=== PATIENT | female | born 1990 | race Two or more races ===

== ENCOUNTER 2016-09-15 15:25 | Emergency (ER) | payer OTHER ==
[~2016-09-15] VITALS: Ht 152.4 cm; Wt 56.7 kg
[~2016-09-15 15:25] MED LIST: CALC500T3 PO; HYDR200T PO; PRED20TA PO; PREN1TAB81 PO
[2016-09-15 15:44] VITALS: BP 125/74
[2016-09-15] MEDS ORDERED: MYCO500T PO (15:50)
[2016-09-15 16:12] LABS: BASOPHILS % (AUTO) 0.2 % (0.0-2.0); DIFF TOTAL % 100 %; EOSINOPHILS % (AUTO) 0.3 % (0.0-6.0); HEMATOCRIT 34 % (33-45); HEMOGLOBIN 11.2 g/dL (11.5-14.8); LYMPHOCYTES # (AUTO) 1.6 /CMM (0.8-4.8); LYMPHOCYTES % (AUTO) 40.1 % (20.0-44.0); MEAN CORPUSCULAR HEMOGLOBIN 29 PG (26.0-33.0); MEAN CORPUSCULAR HGB CONC 33 g/dl (31.0-36.0); MEAN CORPUSCULAR VOLUME 87 fL (82-100); MONOCYTES # (AUTO) 0.4 /CMM (0.1-1.30); MONOCYTES % (AUTO) 11.5 % (2.0-12.0); NEUTROPHILS # (AUTO) 1.9 /CMM (1.8-8.9); NEUTROPHILS % (AUTO) 47.9 % (43.0-81.0); PLATELET COUNT (AUTO) 217 /CMM (150-450); RED BLOOD CELL COUNT(AUTO) 3.92 MIL/uL (4.0-5.2); WHITE BLOOD COUNT (AUTO) 3.9 K/uL (4.3-11.0)
[2016-09-15 16:17] LABS: ADD UA MICROSCOPIC NO; KETONES,URINE Negative (NEGATIVE); LEUKOCYTE ESTERASE ,URINE Negative (NEGATIVE)
[2016-09-15 16:18] LABS: PREGNANCY TEST URINE QUAL NEGATIVE (NEGATIVE)
[2016-09-15 16:21] LABS: CALCIUM, SERUM 8.5 mg/dL (8.5-10.1); CREATININE 0.7 mg/dL (0.6-1.3); POTASSIUM 3.8 mmol/L (3.5-5.1)
[2016-09-15 16:27] LABS: ALBUMIN 3.7 g/dL (3.4-5.0); BILIRUBIN,DIRECT 0.1 mg/dL (0.0-0.2); BILIRUBIN,TOTAL 0.3 mg/dL (0.2-1.0); INDIRECT BILIRUBIN 0.2 mg/dL (0.0-1.1); TOTAL PROTEIN, SERUM 6.8 g/dL (6.4-8.2)
[2016-09-15] MEDS ORDERED: predniSONE 20 MG TABLET PO ONE (17:00)
[2016-09-15] MEDS ORDERED: IBUPROFEN 600 MG TABLET PO ONE ×2 (17:00→17:11)
[2016-09-15] MEDS ORDERED: HYDROCODONE/APAP 5/325MG 1 EACH TABLET PO ONE (17:00)
[2016-09-15] MEDS ORDERED: ONDANSETRON 4 MG TAB.RAPDIS SL ONE (17:00)
[2016-09-15] MEDS ORDERED: HYDROCODONE/APAP 5/325MG 1 EACH TABLET ONE (17:11)
[2016-09-15] MEDS ORDERED: predniSONE 20 MG TABLET ONE (17:11)
[2016-09-15] MEDS ORDERED: predniSONE 10 MG TABLET ONE (17:11)
[2016-09-15] MEDS ORDERED: ONDANSETRON 4 MG TAB.RAPDIS ONE (17:11)
== END 2016-09-15 18:09 | disposition left against medical advice (07) ==
LOC: ER 15:26
DX: M25.531 Pain in right wrist (principal); R21 Rash and other nonspecific skin eruption; M32.9 Systemic lupus erythematosus, unspecified
CPT/HCPCS: 36415; 80048-TC; 80076-TC; 81000-TC; 84703-TC; 85025-TC; A4606; Q0162; Z7610

== ENCOUNTER 2017-01-04 22:19 | Emergency (ER) | payer OTHER ==
[~2017-01-04] VITALS: Ht 152.4 cm; Wt 59.0 kg
[~2017-01-04 22:19] MED LIST changes: +MYCO500T PO; -PRED20TA PO; -PREN1TAB81 PO
--- NOTE | 2017-01-04 22:41 | NUR ---
PT AMBUALOTRY TO ER BED 7 C/O MIGRAINE HEADACHE, PRODUCTIVE COUGH, LIP BLISTERS, FEVERS, CHILLS X4 DAYS, "BECAUSE OF MY LUPUS FLARE-UP" PT AOX4 RR EVEN AND UNLABORED. NO SOB NOTED. NAD NOTED. NO NVD AT THIS TIME. PT GOWNED AND PLACED ON MONITOR WAITING FOR MD MCGHEE.
--- NOTE | 2017-01-04 23:11 | NUR ---
DR. AMADOR AT BEDSIDE FOR EVAL.
[2017-01-04] MEDS ORDERED: DEXAMETHASONE SOD PHOSPHATE 10 MG/ML VIAL ONE (23:21)
[2017-01-04] MEDS ORDERED: diphenhydrAMINE HCL 50 MG/ML VIAL ONE (23:21)
[2017-01-04] MEDS ORDERED: IV NS 0.9% 1,000 ML ONE (23:21)
[2017-01-04] MEDS ORDERED: IV SET PRIMARY 1 EA INFUS.SET MC ONE (23:21)
[2017-01-04] MEDS ORDERED: IV NS 0.9% 1,000 ML BAG IV ONE (23:30)
[2017-01-04] MEDS ORDERED: METOCLOPRAMIDE HCL 10 MG/2 ML VIAL IV ONE (23:30)
[2017-01-04] MEDS ORDERED: DEXAMETHASONE SOD PHOSPHATE 10 MG/ML VIAL IV ONE (23:30)
[2017-01-04] MEDS ORDERED: diphenhydrAMINE HCL 50 MG/ML VIAL IV ONE (23:30)
[2017-01-04] MEDS ORDERED: METOCLOPRAMIDE HCL 10 MG/2 ML VIAL ONE (23:32)
--- NOTE | 2017-01-05 00:29 | NUR ---
IV removed. Catheter intact and site benign. Pressure and 4x4 applied to site. No bleeding noted. Patient discharged to home in stable condition. Written and verbal after care instructions given. Patient verbalizes understanding of instruction. ambulatory with a steady gait. instructed pt not to drive. pt verbalize understanding. pt accompanied by boyfriend
[2017-01-05 00:30] VITALS: BP 116/72
== END 2017-01-05 00:44 | disposition home or self-care (01) ==
LOC: ER 22:20
DX: M32.9 Systemic lupus erythematosus, unspecified (principal); G43.909 Migraine, unspecified, not intractable, without status migrainosus
CPT/HCPCS: A4606; J1100; J1200; J2765; J7030; Z7610

== ENCOUNTER 2017-07-02 22:26 | Emergency (ER) | payer OTHER ==
--- NOTE | 2017-07-02 22:31 | NUR ---
PT CALLED TO TRIAGE. NO RESPONSE.
--- NOTE | 2017-07-02 23:20 | NUR ---
CALLED FOR PT IN [place]. NO RESPONSE.
--- NOTE | 2017-07-03 00:35 | NUR ---
CALLED FOR PT, NO REPONSE. INFORMED BY ADMITTING STAFF PT LEFT.
== END 2017-07-03 00:37 | disposition left against medical advice (07) ==
LOC: ER 22:26
DX: Z53.21 Procedure and treatment not carried out due to patient leaving prior to being seen by health care provider (principal)

== ENCOUNTER 2017-08-18 20:59 | Emergency (ER) | payer OTHER ==
[~2017-08-18] VITALS: Ht 154.9 cm; Wt 56.7 kg
--- NOTE | 2017-08-19 00:26 | NUR ---
PT BIBSELF C/O "LUPUS FLARE UP/MIGRAINE" PT AOX3 RR EVEN AND UNLABORED. NO SOB NOTED. NAD NOTED. NO NVD AT THIS TIME. PT GOWNED AND PLACED ON MONITOR WAITING FOR MD MCGHEE.
[2017-08-19] MEDS ORDERED: METOCLOPRAMIDE HCL 10 MG/2 ML VIAL IV ONE (00:30)
[2017-08-19] MEDS ORDERED: IV NS 0.9% 1,000 ML BAG IV ONE (00:30)
[2017-08-19] MEDS ORDERED: methylPREDNISolone SOD SUCC 125 MG/2ML VIAL IV ONE (00:30)
[2017-08-19] MEDS ORDERED: SUMATRIPTAN SUCCINATE 6 MG/0.5 ML VIAL SQ ONE ×2 (00:30→01:26)
[2017-08-19] MEDS ORDERED: methylPREDNISolone SOD SUCC 125 MG/2ML VIAL ONE (01:26)
[2017-08-19] MEDS ORDERED: METOCLOPRAMIDE HCL 10 MG/2 ML VIAL ONE (01:26)
--- NOTE | 2017-08-19 02:20 | NUR ---
PT STATES FEELING BETTER. DR. KULKARNI MADE AWARE
--- NOTE | 2017-08-19 02:32 | NUR ---
IV removed. Catheter intact and site benign. Pressure and 4x4 applied to site. No bleeding noted. Patient discharged to home in stable condition. Written and verbal after care instructions given. Patient verbalizes understanding of instruction. ambulatory with a steady gait
[2017-08-19 02:33] VITALS: BP 125/77
== END 2017-08-19 02:34 | disposition home or self-care (01) ==
LOC: ER 21:08
DX: G43.909 Migraine, unspecified, not intractable, without status migrainosus (principal); M32.9 Systemic lupus erythematosus, unspecified
CPT/HCPCS: 96361; 96372; 96374; 96375; 99284; J2765; J2930; J3030; J7030

== ENCOUNTER 2019-08-11 19:33 | Emergency (ER) | payer OTHER ==
[~2019-08-11] VITALS: Ht 152.4 cm; Wt 55.3 kg
[~2019-08-11 19:33] MED LIST changes: -CALC500T3 PO; +CALC500T89 PO; -HYDR200T PO; +HYDR200T81 PO
[2019-08-11] MEDS ORDERED: ONDANSETRON HCL/PF 4 MG/2 ML VIAL IVP ONE (20:00)
[2019-08-11] MEDS ORDERED: IV NS 0.9% 1,000 ML BAG IV ONE (20:00)
[2019-08-11] MEDS ORDERED: MORPHINE SULFATE INJ 2 MG/ML DISP.SYRIN IV ONE (20:00)
[2019-08-11] MEDS ORDERED: MORPHINE SULFATE INJ 4 MG/ML DISP.SYRIN ONE (20:13)
[2019-08-11] MEDS ORDERED: ONDANSETRON HCL/PF 4 MG/2 ML VIAL ONE (20:13)
--- NOTE | 2019-08-11 20:28 | NUR ---
BIBSELF FROM HOME TO ER BED 11. AAOX4. NO RESP DISTRESS NOTED. AMBULATORY. C/O EPIGASTRIC AND L LOWER QUADRANT PAIN X 3 DAYS WORST TODAY.PT RATE HER PAIN 7/10, SHARP. PT REPORTS THAT PAIN IS AGGREVATED AFTER SHE EATS. PT REPORTS VOMMITING. MD WAS AT BEDSIDE FOR EVAL. ORDERS RECEIVED, NOTED AND CARRIED OUT. IV LINE OBTAINED ON THE L AC 18G. BLOOD DRAWN AND GIVEN TO HAND TURNER AT BEDSIDE. US IS AT BEDSIDE WELL
[2019-08-11] MEDS ORDERED: FAMOTIDINE/PF INJ 20 MG/2 ML VIAL IV ONE ×2 (20:30→20:47)
[2019-08-11 20:34] LABS: BASOPHILS % (AUTO) 0.4 % (0.0-2.0); HEMATOCRIT 36 % (33-45); LYMPHOCYTES # (AUTO) 1.7 /CMM (0.8-4.8); LYMPHOCYTES % (AUTO) 36.2 % (20.0-44.0); MEAN CORPUSCULAR HGB CONC 34 g/dl (31.0-36.0); MEAN CORPUSCULAR VOLUME 92 fL (82-100); MONOCYTES # (AUTO) 0.4 /CMM (0.1-1.30); MONOCYTES % (AUTO) 7.7 % (2.0-12.0); NEUTROPHILS # (AUTO) 2.5 /CMM (1.8-8.9); NEUTROPHILS % (AUTO) 54.7 % (43.0-81.0); PLATELET COUNT (AUTO) 253 /CMM (150-450); RED BLOOD CELL COUNT(AUTO) 3.89 MIL/uL (4.0-5.2); WHITE BLOOD COUNT (AUTO) 4.6 K/uL (4.3-11.0)
[2019-08-11 20:39] LABS: APPEARANCE,URINE Clear (CLEAR); BILIRUBIN,URINE Negative (NEGATIVE); BLOOD, URINE Negative Ery/uL (NEGATIVE); COLOR,URINE Yellow (YELLOW); KETONES,URINE Negative (NEGATIVE); LEUKOCYTE ESTERASE ,URINE Negative (NEGATIVE); NITRITE, URINE Negative (NEGATIVE); PROTEIN,URINE Negative (NEGATIVE); UGLUCOSE Negative (NEGATIVE); UROBILINOGEN,URINE 0.2 EU/dL (0.2)
[2019-08-11 20:42] LABS: CALCIUM, SERUM 8.8 mg/dL (8.5-10.1); CREATININE 0.7 mg/dL (0.6-1.3); POTASSIUM 3.5 mmol/L (3.5-5.1)
[2019-08-11 21:00] LABS: ALBUMIN 3.9 g/dL (3.4-5.0); BILIRUBIN,DIRECT 0.1 mg/dL (0.0-0.2); BILIRUBIN,TOTAL 0.3 mg/dL (0.2-1.0); TOTAL PROTEIN, SERUM 6.8 g/dL (6.4-8.2)
[2019-08-11] MEDS ORDERED: HYDROCODONE/APAP 5/325MG 1 EACH TABLET ONE (21:50)
[2019-08-11] MEDS ORDERED: HYDROCODONE/APAP 5/325MG 1 EACH TABLET PO ONE (22:00)
[2019-08-11 22:02] VITALS: BP 122/85
--- NOTE | 2019-08-11 22:02 | NUR ---
Patient discharged to home in stable condition. Written and verbal after care instructions given. Patient verbalizes understanding of instruction.IV removed. Catheter intact and site benign. Pressure and 4x4 applied to site. No bleeding noted. Pt ambulatory with a steady gait
== END 2019-08-11 22:03 | disposition home or self-care (01) ==
LOC: ER 19:42
DX: R10.13 Epigastric pain (principal); R10.11 Right upper quadrant pain; F17.200 Nicotine dependence, unspecified, uncomplicated; R11.2 Nausea with vomiting, unspecified; Z98.890 Other specified postprocedural states; Z60.2 Problems related to living alone; Z79.899 Other long term (current) drug therapy
CPT/HCPCS: 36415; 76705; 80048; 80076; 81001; 83690; 84703; 85025; 96361; 96374; 96375; 99284; J2270; J2405; J3490; J7030; 81000-TC

== ENCOUNTER 2019-09-01 18:46 | Inpatient (IN) | payer OTHER ==
[~2019-09-01] VITALS: Ht 152.4 cm; Wt 57.6 kg
--- NOTE | 2019-09-01 18:56 | NUR ---
migraine headaches, generalized body aches x 4 days s/p liposuction, pt awake, alert, -sob, nad noted, vss, pending md alexandra
[2019-09-01] MEDS ORDERED: IV NS 0.9% 1,000 ML BAG IV ONE (19:30)
[2019-09-01] MEDS ORDERED: PROCHLORPERAZINE EDISYLATE 10 MG/2 ML VIAL IVP ONE (19:30)
[2019-09-01] MEDS ORDERED: DEXAMETHASONE SOD PHOSPHATE 4 MG/ML VIAL IV ONE (19:30)
[2019-09-01] MEDS ORDERED: KETOROLAC TROMETHAMINE INJ 30 MG/ML VIAL IV ONE (19:30)
[2019-09-01] MEDS ORDERED: diphenhydrAMINE HCL 50 MG/ML VIAL IV ONE (19:30)
[2019-09-01] MEDS ORDERED: KETOROLAC TROMETHAMINE INJ 30 MG/ML VIAL ONE (19:40)
[2019-09-01] MEDS ORDERED: PROCHLORPERAZINE EDISYLATE 10 MG/2 ML VIAL ONE (19:40)
[2019-09-01] MEDS ORDERED: diphenhydrAMINE HCL 50 MG/ML VIAL ONE (19:40)
[2019-09-01] MEDS ORDERED: DEXAMETHASONE SOD PHOSPHATE 10 MG/ML VIAL ONE (19:40)
[2019-09-01 19:44] LABS: CALCIUM, SERUM 8.4 mg/dL (8.5-10.1); CREATININE 0.7 mg/dL (0.6-1.3); POTASSIUM 2.9 mmol/L (3.5-5.1)
[2019-09-01 19:47] LABS: APPEARANCE,URINE Clear (CLEAR); BILIRUBIN,URINE Negative (NEGATIVE); BLOOD, URINE Negative Ery/uL (NEGATIVE); COLOR,URINE Yellow (YELLOW); KETONES,URINE Negative (NEGATIVE); LEUKOCYTE ESTERASE ,URINE Trace (NEGATIVE); NITRITE, URINE Negative (NEGATIVE); PH,URINE 7.5 (5.0-8.0); PROTEIN,URINE Negative (NEGATIVE); UGLUCOSE Negative (NEGATIVE)
[2019-09-01 19:58] LABS: BACTERIA,URINE Few /HPF (None Seen); RBC,URINE 0-2 /HPF (0-2); SQUAMOUS EPITHELIAL CELL,UR Many /HPF (None Seen)
[2019-09-01 20:04] LABS: BILIRUBIN,DIRECT 0.1 mg/dL (0.0-0.2); BILIRUBIN,TOTAL 0.5 mg/dL (0.2-1.0); TOTAL PROTEIN, SERUM 5.6 g/dL (6.4-8.2)
[2019-09-01 20:14] LABS: BASOPHILS % (AUTO) 0.1 % (0.0-2.0); EOSINOPHILS % (AUTO) 0.2 % (0.0-6.0); LYMPHOCYTES # (AUTO) 2.1 /CMM (0.8-4.8); LYMPHOCYTES % (AUTO) 39.3 % (20.0-44.0); MEAN CORPUSCULAR HGB CONC 34 g/dl (31.0-36.0); MEAN CORPUSCULAR VOLUME 92 fL (82-100); MONOCYTES # (AUTO) 0.4 /CMM (0.1-1.30); MONOCYTES % (AUTO) 6.7 % (2.0-12.0); NEUTROPHILS # (AUTO) 2.9 /CMM (1.8-8.9); NEUTROPHILS % (AUTO) 53.7 % (43.0-81.0); PLATELET COUNT (AUTO) 217 /CMM (150-450); WHITE BLOOD COUNT (AUTO) 5.5 K/uL (4.3-11.0)
[2019-09-01 20:16] LABS: RED BLOOD CELL COUNT(AUTO) 1.95 MIL/uL (4.0-5.2)
[2019-09-01 20:17] LABS: HEMATOCRIT 18 % (33-45); HEMOGLOBIN 6.1 g/dL (11.5-14.8)
[2019-09-01] MEDS ORDERED: POTASSIUM CHLORIDE 20 MEQ TAB.PRT.SR PO ONE ×3 (20:30→21:36)
[2019-09-01 20:33] LABS: LYMPHOCYTES % (MANUAL) 40 % (16-48); MONOCYTES % (MANUAL) 5 % (0-11.0); NEUTROPHILS % (MANUAL) 55 (42-76)
[2019-09-01] MEDS ORDERED: CT SWABBABLE VALVE TRANS SET 1 EA INFUS.SET MC ONE (20:36)
[2019-09-01] MEDS ORDERED: IOHEXOL-300 100 ML VIAL IV ONE (20:36)
[2019-09-01] MEDS ORDERED: IV NS 0.9% 250 ML IV ONE (20:36)
--- NOTE | 2019-09-01 21:55 | NUR ---
lab called, blood will be ready 30mins
[2019-09-01] MEDS ORDERED: MORPHINE SULFATE INJ 4 MG/ML DISP.SYRIN ONE (22:21)
--- NOTE | 2019-09-01 22:25 | NUR ---
reports pain in lower abd, luis manuel moralez aware, new orders [id number] ivp given
[2019-09-01] MEDS ORDERED: MORPHINE SULFATE INJ 2 MG/ML DISP.SYRIN IV ONE (22:30)
[2019-09-01 23:05] VITALS: BP 118/70
--- NOTE | 2019-09-01 23:05 | NUR ---
blood transfusion started; cosigned with mello roberto. vs recorded on chart
[2019-09-01 23:19] VITALS: BP 102/85
--- NOTE | 2019-09-01 23:26 | NUR ---
medrec updated, per patient she does not take any medications anymore, terence calabrese np made aware.
[2019-09-01] MEDS ORDERED: MAG HYDROX/AL HYDROX/SIMETH 30 ML UDC PO PRN (23:30)
[2019-09-01] MEDS ORDERED: HYDROCODONE/APAP 5/325MG 1 EACH TABLET PO PRN (23:30)
[2019-09-01] MEDS ORDERED: Z GUARD REMEDY 2 OZ OINT TP PRN (23:30)
[2019-09-01] MEDS ORDERED: MAGNESIUM HYDROXIDE 30 ML UDC PO PRN (23:30)
[2019-09-01] MEDS ORDERED: ONDANSETRON HCL/PF 4 MG/2 ML VIAL IVP PRN (23:30)
--- NOTE | 2019-09-02 00:01 | NUR ---
report given to mily roberto for gallo; pt will be transported once ms bed is ready.
--- NOTE | 2019-09-02 00:30 | NUR ---
pt to MS via nita
--- NOTE | 2019-09-02 00:30 | NUR ---
MS FISHING CAPTAIN NOTES Received patient from ER via rney accompanied by 1 ER staff. Admitted to [facility] 207-2 due to Anemia under the service of VANESSA Damon. Transferred patient to bed comfortably, noted ambulatory with steady gait noted. On RA, no SOB/respiratory distress noted. With on going BT with less than 20 cc left on the bag. Patient claimed no skin issues identified. Admission routine done. Patient's belongings inventory completed by the assigned COUNTER STITCHER. Admission orders noted and carried out. Kept on bed clean, dry and comfortable. Call light within easy reach. Will continue to monitor accordingly.
[2019-09-02] MEDS: HYDROCODONE/APAP 10/325MG 1 EA TABLET PO PRN ×3 (00:38→16:23)
[2019-09-02 00:50] VITALS: BP 124/82
--- NOTE | 2019-09-02 01:00 | NUR ---
MS RN NOTES Instructed patient on the stool sample collection, container and hat provided. Patient verbalized understanding. Will continue to monitor accordingly.
[2019-09-02 06:21] LABS: HEMATOCRIT 21 % (33-45); HEMOGLOBIN 7.3 g/dL (11.5-14.8); LYMPHOCYTES # (AUTO) 0.6 /CMM (0.8-4.8); MEAN CORPUSCULAR HGB CONC 34 g/dl (31.0-36.0); MEAN CORPUSCULAR VOLUME 90 fL (82-100); MONOCYTES # (AUTO) 0.1 /CMM (0.1-1.30); MONOCYTES % (AUTO) 1.7 % (2.0-12.0); NEUTROPHILS # (AUTO) 3.1 /CMM (1.8-8.9); NEUTROPHILS % (AUTO) 82.3 % (43.0-81.0); PLATELET COUNT (AUTO) 212 /CMM (150-450); RED BLOOD CELL COUNT(AUTO) 2.39 MIL/uL (4.0-5.2); WHITE BLOOD COUNT (AUTO) 3.7 K/uL (4.3-11.0)
--- NOTE | 2019-09-02 06:38 | NUR ---
MS RN CLOSING NOTES Patient asleep, easily awaken. No new unusualities noted. S/P 1 unit PRBC BT. Medicated for pain, noted effective. All nursing needs attended, due meds given as ordered. Kept on bed clean, dry and comfortable. On fall and aspiration precautions. Call light within easy reach. Endorsed.
[2019-09-02 06:45] LABS: CALCIUM, SERUM 8.3 mg/dL (8.5-10.1); CREATININE 0.6 mg/dL (0.6-1.3); MAGNESIUM 1.9 mg/dL (1.8-2.4); PHOSPHORUS 3.7 mg/dL (2.5-4.9); POTASSIUM 4.2 mmol/L (3.5-5.1)
[2019-09-02 06:49] LABS: THYROID STIMULATING HORMONE 0.475 uIU/mL (0.358-3.74)
--- NOTE | 2019-09-02 06:49 | NUR ---
MS RN CLOSING NOTES Patient asleep, easily awaken. No new unusualities noted. Medicated for pain, noted effective. All nursing needs attended, due meds given as ordered. Kept on bed clean, dry and comfortable. On fall and aspiration precautions. Call light within easy reach. Endorsed. Addendum: 09/02/19 at 0650 by DANIEL CORRALES RN WRONG ENTRY
[2019-09-02 07:30] VITALS: BP 123/75
--- NOTE | 2019-09-02 08:00 | NUR ---
RN OPENING NOTES RECEIVED PATIENT HAVING BREAKFAST. A/OX3, ABLE TO MAKE NEEDS KNOWN. NOT IN ANY FORM OF DISTRESS. NO SOB. DENIED PAIN AND DISCOMFORT AT THIS TIME. IV ACCESS INTACT AND PATENT. KEPT PATIENT SAFE AND COMFORT. BED IN LOW/LOCKED POSITION. SIDERAILS UPX2, CALL LIGHT IN REACH. WILL CONTINUE TO MONITOR ACCORDINGLY.
[2019-09-02] MEDS ORDERED: Medication Not On Formulary EA (Mycophenolate Mofetil (Cellcept) 500 MG) PO SCH (09:00)
[2019-09-02] MEDS ORDERED: MYCOPHENOLATE MOFETIL 250 MG CAPSULE PO SCH (09:00)
[2019-09-02] MEDS ORDERED: HYDROXYCHLOROQUINE 200 MG TABLET PO SCH (09:00)
[2019-09-02] MEDS ORDERED: CALCIUM CARBONATE (1250) 500 MG TABLET PO SCH (09:00)
[2019-09-02] MEDS: MORPHINE SULFATE INJ 2 MG/ML DISP.SYRIN IV PRN ×2 (09:02→12:13)
[2019-09-02 16:00] VITALS: BP 118/75
[2019-09-02] MEDS: DOCUSATE SODIUM 250 MG CAPSULE PO SCH (17:08)
[2019-09-02] MEDS: HYDROMORPHONE 1 MG/1 ML DISP.SYRIN IV PRN ×2 (18:47→22:56)
--- NOTE | 2019-09-02 19:32 | NUR ---
RN CLOSING NOTES PATIENT IN STABLE CONDITION. ALL NEEDS ATTENDED AND PROVIDED. ALL DUE MEDICATIONS GIVEN ORDERED. KEPT PATIENT SAFE AND COMFORTABLE. BED IN LOW/LOCKED POSITION, SIDERAILS UPX2, CALL LIGHT IN REACH. ENDORSED TO NIGHT RN FOR JULIUS.
--- NOTE | 2019-09-02 19:33 | NUR ---
MS RN OPENING NOTES Received patient A/O x4, awake on bed. Ambulatory with steady gait. On RA, no complaints made at this time. Patient able to attend needs independently. Discuss to patient the POC for the shift, patient verbalized understanding. Call light within easy reach. Kept bed low and locked. Will continue to monitor accordingly.
--- NOTE | 2019-09-02 19:33 | NUR ---
MS WEISS CLOSING NOTES Received patient A/O x4, awake on bed. Ambulatory with steady gait. On RA, no complaints made at this time. Patient able to attend needs independently. Discuss to patient the POC for the shift, patient verbalized understanding. Call light within easy reach. Kept bed low and locked. Will continue to monitor accordingly. Addendum: 09/02/19 at 2028 by DANIEL CORRALES RN THIS IS AN OPENING NOTES
[2019-09-02 20:00] VITALS: BP 127/90
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
--- NOTE | 2019-09-02 23:32 | NUR ---
MS RN NOTES Patient noted with complaint of worsening pain from lower back now spread to mid back not relived by diluadid 1mg IV. Abdominal tenderness decreased. Notified hr receptionist MD with quick response of STAT orders, noted and carried out. Provided hot packs to patient. Will continue to monitor accordingly.
[2019-09-03] MEDS ORDERED: METHOCARBAMOL (750MG) 750 MG TABLET ONE ×2 (00:15→04:36)
[2019-09-03] MEDS: METHOCARBAMOL (750MG) 750 MG TABLET PO SCH ×6 (00:21→21:09)
--- NOTE | 2019-09-03 00:32 | NUR ---
MS RN NOTES X-ray resulted, relayed to position description manager MD. No orders made at this time. Informed patient. Will continue to monitor accordingly.
[2019-09-03] MEDS: HYDROMORPHONE 1 MG/1 ML DISP.SYRIN IV PRN ×5 (06:27→22:42)
[2019-09-03 06:35] LABS: BASOPHILS % (AUTO) 0.2 % (0.0-2.0); EOSINOPHILS % (AUTO) 0.6 % (0.0-6.0); HEMATOCRIT 22 % (33-45); HEMOGLOBIN 7.6 g/dL (11.5-14.8); LYMPHOCYTES % (AUTO) 41.6 % (20.0-44.0); MEAN CORPUSCULAR HGB CONC 34 g/dl (31.0-36.0); MEAN CORPUSCULAR VOLUME 90 fL (82-100); MONOCYTES # (AUTO) 0.4 /CMM (0.1-1.30); MONOCYTES % (AUTO) 7.7 % (2.0-12.0); NEUTROPHILS # (AUTO) 2.4 /CMM (1.8-8.9); NEUTROPHILS % (AUTO) 49.9 % (43.0-81.0); PLATELET COUNT (AUTO) 244 /CMM (150-450); RED BLOOD CELL COUNT(AUTO) 2.49 MIL/uL (4.0-5.2); WHITE BLOOD COUNT (AUTO) 4.8 K/uL (4.3-11.0)
--- NOTE | 2019-09-03 06:56 | NUR ---
MS RN CLOSING NOTES Patient asleep on bed, on semi-Young's position. On RA, no respiratory distress noted. Medicated for pain, noted partially effective. All nursing needs attended, due meds given as ordered. Patient able to repositions self independently. Patient attended self needs independently. Kept on bed clean, dry and comfortable. Call light within easy reach. On fall and aspiration precautions. For possible D/C today, patient expressed to talk with the MD today. Endorsed to the next shift.
--- NOTE | 2019-09-03 07:30 | NUR ---
RN MS NOTES PT IN BED, AWAKE, ALERT AND ORIENTED, WITH COMPLAINT OF BACK PAIN, NIGHT RN ADMINISTERED PAIN MEDICINE, WILL REASSESS FOR PAIN, NOT IN DISTRESS, CALL LIGHT WITHIN REACH, PLAN OF CARE DISCUSSED WITH PT, VERBALIZED UNDERSTANDING.
[2019-09-03 08:00] VITALS: BP 119/75
[2019-09-03] MEDS: DOCUSATE SODIUM 250 MG CAPSULE PO SCH (09:01)
[2019-09-03] MEDS ORDERED: methylPREDNISolone SOD SUCC 40 MG/ML VIAL IV ONE (10:30)
--- NOTE | 2019-09-03 10:37 | NUR ---
RN MS NOTES PT SEEN AND EXAMINED BY DR. PARKER, PLAN OF CARE DISCUSSED WITH PT, CT ABD PELVIS ORDERED, PAIN MEDICATION ORDER ADJUSTED, VERBALIZED UNDERSTANDING, NEW ORDERS GIVEN, NOTED AND CARRIED OUT.
[2019-09-03] MEDS: PANTOPRAZOLE 40 MG TABLET.DR PO SCH (10:56)
--- NOTE | 2019-09-03 13:50 | NUR ---
RN MS NOTES DR. PARKER INFORMED OF LATEST CT ABD PELVIS RESULT, NEW ORDERS GIVEN, PT INFORMED, PAIN MEDS GIVEN ORDERED, WILL CONTINUE TO MONITOR.
[2019-09-03] MEDS: CEFTRIAXONE 1 G in IV D5W 50 ML IV SCH (14:37)
[2019-09-03 16:00] VITALS: BP 116/77
--- NOTE | 2019-09-03 18:19 | NUR ---
RN MS NOTES PT IN BED, AWAKE, ALERT AND ORIENTED, PAIN MEDS GIVEN FOR PAIN MANAGEMENT, NOT IN DISTRESS, ABLE TO AMBULATE TO THE BATHROOM, HOT PACKS PROVIDED, STARTED ON IV ATB ORDERED, NO ADVERSE REACTION NOTED, PM MEDS GIVEN, ALL NEEDS ATTENDED.
--- NOTE | 2019-09-03 19:50 | NUR ---
DR. RICARDO IN TO SEE THE PATIENT. Dr. ricardo assisted with rounding at the bedside on the patient. no new orders recieved. patient inquiring about pain medications schedule. endorsed to primary nurse Abby
--- NOTE | 2019-09-03 19:55 | NUR ---
RN OPENING NOTES RECEIVED REPORT FROM DAYSORFT RN JACKIE. FOUND Pt AWAKE, RESTING IN BED, TALKING ON THE PHONE. NO S/S OF ACUTE DISTRESS OR SOB NOTED. Pt IS A/OX4, VERBAL, ABLE TO MAKE NEEDS KNOWN. IV ACCESS ON RAC #20G, SL. SAFETY MEASURES IN PLACE. BED LOW, LOCKED, HOB ELEVATED, SIDE RAILS UP, CALL LIGHT AND BEDSIDE TABLE WITHIN REACH. WILL CONTINUE TO MONITOR Pt's CONDITION AND SAFETY THROUGHOUT THE NIGHT.
[2019-09-03 20:14] VITALS: BP 97/74
[2019-09-03] MEDS: ACETAMINOPHEN 325 MG TABLET PO PRN (21:09)
[2019-09-03 22:30] VITALS: BP 114/87
[2019-09-04] MEDS: METHOCARBAMOL (750MG) 750 MG TABLET PO SCH ×6 (01:53→21:55)
[2019-09-04] MEDS: HYDROMORPHONE 1 MG/1 ML DISP.SYRIN IV PRN ×6 (03:00→22:30)
[2019-09-04 06:29] LABS: BASOPHILS % (AUTO) 0.2 % (0.0-2.0); EOSINOPHILS % (AUTO) 1.5 % (0.0-6.0); HEMATOCRIT 26 % (33-45); HEMOGLOBIN 9.1 g/dL (11.5-14.8); LYMPHOCYTES # (AUTO) 2.2 /CMM (0.8-4.8); LYMPHOCYTES % (AUTO) 43.1 % (20.0-44.0); MEAN CORPUSCULAR HGB CONC 35 g/dl (31.0-36.0); MEAN CORPUSCULAR VOLUME 91 fL (82-100); MONOCYTES # (AUTO) 0.4 /CMM (0.1-1.30); MONOCYTES % (AUTO) 8.5 % (2.0-12.0); NEUTROPHILS # (AUTO) 2.4 /CMM (1.8-8.9); NEUTROPHILS % (AUTO) 46.7 % (43.0-81.0); PLATELET COUNT (AUTO) 285 /CMM (150-450); RED BLOOD CELL COUNT(AUTO) 2.88 MIL/uL (4.0-5.2); WHITE BLOOD COUNT (AUTO) 5.1 K/uL (4.3-11.0)
[2019-09-04] MEDS: PANTOPRAZOLE 40 MG TABLET.DR PO SCH (06:59)
--- NOTE | 2019-09-04 07:26 | NUR ---
RN CLOSING NOTES NO SIGNIFICANT CHANGES IN Pt's CONDITION. Pt REMAINED STABLE PER BASELINE. NO S/S OF ACUTE DISTRESS OR SOB NOTED DURING THE NIGHT. ALL NEEDS MET AND ATTENDED TO. SAFETY MEASURES IN PLACE. BED LOW, LOCKED, HOB ELEVATED, SIDE RAILS UP, CALL LIGHT AND BEDSIDE TABLE WITHIN REACH. Pt IS RESTING COMFORTABLY IN BED, WITH UNLABORED RESPIRATIONS AND EQUAL CHEST RISE AND FALL. WILL ENDORSE TO DAYSHIFT RN FOR Pt's JULIUS.
--- NOTE | 2019-09-04 07:30 | NUR ---
RN MS NOTES PT IN BED, AWAKE, ALERT AND ORIENTED, NO COMPLAINT OF PAIN AT THIS TIME, RESPIRATIONS NORMAL, CALL LIGHT WITHIN REACH, NEEDS ATTENDED.
[2019-09-04] MEDS: DOCUSATE SODIUM 250 MG CAPSULE PO SCH (09:04)
[2019-09-04] MEDS: predniSONE 20 MG TABLET PO SCH (09:04)
[2019-09-04 10:25] VITALS: BP 108/68
--- NOTE | 2019-09-04 12:23 | NUR ---
RN MS NOTES PT SEEN AND EXAMINED BY ANJU MENDEZ FROM SURGERY, NO NEW ORDER GIVEN.
[2019-09-04] MEDS: ACETAMINOPHEN 325 MG TABLET PO PRN (12:40)
[2019-09-04] MEDS ORDERED: KETOROLAC TROMETHAMINE INJ 30 MG/ML VIAL IM ONE (13:00)
[2019-09-04] MEDS ORDERED: POLYETHYLENE GLYCOL 3350 17 GM POWD.PACK PO PRN (13:00)
[2019-09-04] MEDS ORDERED: IV NS 0.9% 500 ML BAG IV ONE (13:00)
--- NOTE | 2019-09-04 13:09 | NUR ---
RN MS NOTES PTSEEN AND EXAMINED BY DR. PARKER, PLAN OF CARE DISCUSSED WITH PT, VERBALIZED UNDERSTANDING, NEW ORDERS GIVEN.
[2019-09-04] MEDS: CEFTRIAXONE 1 G in IV D5W 50 ML IV SCH (14:49)
[2019-09-04 17:15] VITALS: BP 108/58
--- NOTE | 2019-09-04 18:39 | NUR ---
RN MS NOTES PT IN BED, AWAKE, PAIN MEDS GIVEN ORDERED, PM MEDS GIVEN, SEEN BY MAR CAMARILLO FOR PLASTICS, NO NEW ORDER GIVEN, TOLERATING CURRENT DIET, NEEDS ATTENDED.
--- NOTE | 2019-09-04 19:58 | NUR ---
MS RN RECEIVED PATIENT IN BED A/O X 4, STABLE AND NOT IN DISTRESS. WILL CONTINUE TO MONITOR
[2019-09-04 20:00] VITALS: BP 102/45
[2019-09-04 22:42] VITALS: BP 102/45
[2019-09-05] MEDS: METHOCARBAMOL (750MG) 750 MG TABLET PO SCH ×3 (01:13→10:07)
[2019-09-05] MEDS: HYDROMORPHONE 1 MG/1 ML DISP.SYRIN IV PRN ×3 (02:30→10:43)
[2019-09-05 06:21] LABS: BASOPHILS % (AUTO) 0.2 % (0.0-2.0); EOSINOPHILS % (AUTO) 1.3 % (0.0-6.0); HEMATOCRIT 26 % (33-45); HEMOGLOBIN 8.8 g/dL (11.5-14.8); LYMPHOCYTES # (AUTO) 2.1 /CMM (0.8-4.8); LYMPHOCYTES % (AUTO) 30.1 % (20.0-44.0); MEAN CORPUSCULAR HGB CONC 34 g/dl (31.0-36.0); MEAN CORPUSCULAR VOLUME 91 fL (82-100); MONOCYTES # (AUTO) 0.6 /CMM (0.1-1.30); MONOCYTES % (AUTO) 8.2 % (2.0-12.0); NEUTROPHILS # (AUTO) 4.1 /CMM (1.8-8.9); NEUTROPHILS % (AUTO) 60.2 % (43.0-81.0); PLATELET COUNT (AUTO) 340 /CMM (150-450); RED BLOOD CELL COUNT(AUTO) 2.84 MIL/uL (4.0-5.2); WHITE BLOOD COUNT (AUTO) 6.8 K/uL (4.3-11.0)
--- NOTE | 2019-09-05 06:35 | NUR ---
PT SLEPT WELL, NO S/S OF DISTRESS, KEPT CLEAN, DRY AND COMFORTABLE AT ALL TIMES. NEEDS ATTENDED AND ANTICIPATED. NURSING CARE RENDERED, MONITORED FOR PAIN. SAFETY MEASURES AT ALL TIMES. WILL ENDORSE NEXT SHIFT POC.
--- NOTE | 2019-09-05 07:10 | NUR ---
RN OPENING NOTES RECEIVED PATIENT IN BED RESTING. A/OX3, ABLE TO MAKE NEEDS KNOWN. NOT IN ANY FORM OF DISTRESS. NO SOB. DENIED PAIN AND DISCOMFORT AT THIS TIME. IV ACCESS INTACT AND PATENT. KEPT PATIENT SAFE AND COMFORT. BED IN LOW/LOCKED POSITION. SIDERAILS UPX2, CALL LIGHT IN REACH. WILL CONTINUE TO MONITOR ACCORDINGLY.
[2019-09-05] MEDS ORDERED: OXYC-133 PO ×2 (07:43→07:49)
[2019-09-05] MEDS ORDERED: ZOLP10TA2 PO (07:47)
[2019-09-05] MEDS ORDERED: CEPH-570 PO (07:47)
[2019-09-05 08:00] VITALS: BP 113/58
[2019-09-05] MEDS: DOCUSATE SODIUM 250 MG CAPSULE PO SCH (10:06)
[2019-09-05] MEDS: PANTOPRAZOLE 40 MG TABLET.DR PO SCH (10:06)
[2019-09-05] MEDS: predniSONE 20 MG TABLET PO SCH (10:07)
--- NOTE | 2019-09-05 11:15 | NUR ---
Discharged patient in stable condition picked up by friend, accompanied at the lobby by primary nurse. DC instructions given, verbalized understanding. DC paperwrok handed to patient and returned all belongings. all forms signed. iv access removed, tip intact, no complications noted. skin photos taken.
== END 2019-09-05 11:15 | disposition home or self-care (01) | DRG 813 ==
LOC: ER 18:51 → MEDSG2 23:46
PROVIDERS: ADMIT Nurse Practitioner Acute Care; ATTEND Nurse Practitioner Acute Care
PROC: 30233P1 Transfusion of Nonautologous Frozen Red Cells into Peripheral Vein, Percutaneous Approach (ICD-10-PCS; principal; 2019-09-01)
DX: L76.32 Postprocedural hematoma of skin and subcutaneous tissue following other procedure (principal); M32.9 Systemic lupus erythematosus, unspecified; E44.0 Moderate protein-calorie malnutrition; E88.09 Other disorders of plasma-protein metabolism, not elsewhere classified; L76.22 Postprocedural hemorrhage of skin and subcutaneous tissue following other procedure; E87.6 Hypokalemia; M54.9 Dorsalgia, unspecified; K59.00 Constipation, unspecified; Y83.8 Other surgical procedures as the cause of abnormal reaction of the patient, or of later complication, without mention of misadventure at the time of the procedure; Y92.89 Other specified places as the place of occurrence of the external cause; G43.909 Migraine, unspecified, not intractable, without status migrainosus; D62 Acute posthemorrhagic anemia
CPT/HCPCS: 36415; 71045-TC; 80048-TC; 80061-TC; 80076-TC; 81000-TC; 83735-TC; 84100-TC; 84443-TC; 84703-TC; 85025-TC; 85730-TC; 86850-TC; 86921-TC; 87081-TC; G0378; J0696; J0780; J1100; J1170; J1200; J1885; J2270; J2920; J7030; J7040; J7050; J7060; J7517; P9016-BL; Q9967

== ENCOUNTER 2019-09-13 14:00 | Emergency (ER) | payer OTHER ==
[~2019-09-13] VITALS: Ht 152.4 cm; Wt 57.2 kg
[~2019-09-13 14:00] MED LIST changes: -CALC500T89 PO; +CEPH-570 PO; -HYDR200T81 PO; -MYCO500T PO; +OXYC-133 PO; +ZOLP10TA2 PO
--- NOTE | 2019-09-13 14:34 | NUR ---
DR CONWAY AT BEDSIDE FOR EVAL.
[2019-09-13 14:58] LABS: BASOPHILS % (AUTO) 0.5 % (0.0-2.0); EOSINOPHILS % (AUTO) 1.4 % (0.0-6.0); HEMATOCRIT 30 % (33-45); LYMPHOCYTES # (AUTO) 1.2 /CMM (0.8-4.8); LYMPHOCYTES % (AUTO) 29.7 % (20.0-44.0); MEAN CORPUSCULAR HGB CONC 34 g/dl (31.0-36.0); MEAN CORPUSCULAR VOLUME 94 fL (82-100); MONOCYTES # (AUTO) 0.3 /CMM (0.1-1.30); MONOCYTES % (AUTO) 8.1 % (2.0-12.0); NEUTROPHILS # (AUTO) 2.5 /CMM (1.8-8.9); NEUTROPHILS % (AUTO) 60.3 % (43.0-81.0); PLATELET COUNT (AUTO) 413 /CMM (150-450); RED BLOOD CELL COUNT(AUTO) 3.12 MIL/uL (4.0-5.2); WHITE BLOOD COUNT (AUTO) 4.2 K/uL (4.3-11.0)
[2019-09-13] MEDS ORDERED: IV NS 0.9% 500 ML BAG IV ONE (15:00)
[2019-09-13 15:03] LABS: APPEARANCE,URINE Clear (CLEAR); BILIRUBIN,URINE Negative (NEGATIVE); BLOOD, URINE Negative Ery/uL (NEGATIVE); COLOR,URINE Yellow (YELLOW); KETONES,URINE Negative (NEGATIVE); LEUKOCYTE ESTERASE ,URINE Negative (NEGATIVE); NITRITE, URINE Negative (NEGATIVE); PH,URINE 6.5 (5.0-8.0); PROTEIN,URINE Negative (NEGATIVE); UGLUCOSE Negative (NEGATIVE); UROBILINOGEN,URINE 0.2 EU/dL (0.2)
[2019-09-13 15:05] LABS: CALCIUM, SERUM 8.9 mg/dL (8.5-10.1); CREATININE 0.6 mg/dL (0.6-1.3); POTASSIUM 4.1 mmol/L (3.5-5.1)
[2019-09-13 15:11] LABS: ALBUMIN 3.3 g/dL (3.4-5.0); BILIRUBIN,DIRECT 0.1 mg/dL (0.0-0.2); BILIRUBIN,TOTAL 0.4 mg/dL (0.2-1.0); TOTAL PROTEIN, SERUM 6.4 g/dL (6.4-8.2)
[2019-09-13] MEDS ORDERED: MORPHINE SULFATE INJ 2 MG/ML DISP.SYRIN ONE (16:21)
[2019-09-13] MEDS ORDERED: methylPREDNISolone SOD SUCC 125 MG/2ML VIAL ONE (16:21)
[2019-09-13] MEDS ORDERED: methylPREDNISolone SOD SUCC 125 MG/2ML VIAL IV ONE (16:30)
[2019-09-13] MEDS ORDERED: MORPHINE SULFATE INJ 2 MG/ML DISP.SYRIN IV ONE (16:30)
[2019-09-13 16:53] VITALS: BP 132/77
--- NOTE | 2019-09-13 16:53 | NUR ---
Patient discharged to home in stable condition. Written and verbal after care instructions given. Patient verbalizes understanding of instruction.IV removed. Catheter intact and site benign. Pressure and 4x4 applied to site. No bleeding noted.
== END 2019-09-13 16:54 | disposition home or self-care (01) ==
LOC: ER 14:01
DX: M32.9 Systemic lupus erythematosus, unspecified (principal); D64.9 Anemia, unspecified; F17.200 Nicotine dependence, unspecified, uncomplicated; Z98.890 Other specified postprocedural states; Z60.2 Problems related to living alone; Z79.899 Other long term (current) drug therapy
CPT/HCPCS: 36415; 80048; 80076; 81001; 84703; 85025; 93005; 96374; 96375; 99284; J2270; J2930; J7040; 81000-TC

== ENCOUNTER 2019-09-22 14:37 | Emergency (ER) | payer OTHER ==
[~2019-09-22] VITALS: Ht 152.4 cm; Wt 57.2 kg
--- NOTE | 2019-09-22 14:58 | NUR ---
PT BIB SELF C/O FEVER AND BODY ACHE STARTED YESTERDAY, PT IS AAOX4, NOT IN RESPIRATORY DISTRESS, HOOKED TO MONITOR, KEPT RESTED NAD COMFORTABLE, WILL CONTINUE TO MONITOR.
[2019-09-22] MEDS ORDERED: IV NS 0.9% 1,000 ML BAG IV ONE (15:30)
[2019-09-22] MEDS ORDERED: KETOROLAC TROMETHAMINE INJ 30 MG/ML VIAL IV ONE (15:30)
--- NOTE | 2019-09-22 15:30 | NUR ---
URINE SPECIMEN COLLECTED AND SENT TO LAB.
--- NOTE | 2019-09-22 15:35 | NUR ---
PT IV LINE ESTABLISHED, BLOOD DRAWN AND SENT TO LAB.
[2019-09-22 15:42] LABS: BASOPHILS % (AUTO) 0.5 % (0.0-2.0); EOSINOPHILS % (AUTO) 0.1 % (0.0-6.0); HEMATOCRIT 30 % (33-45); HEMOGLOBIN 10.3 g/dL (11.5-14.8); LYMPHOCYTES # (AUTO) 0.4 /CMM (0.8-4.8); LYMPHOCYTES % (AUTO) 13.3 % (20.0-44.0); MEAN CORPUSCULAR HGB CONC 34 g/dl (31.0-36.0); MEAN CORPUSCULAR VOLUME 94 fL (82-100); MONOCYTES # (AUTO) 0.4 /CMM (0.1-1.30); MONOCYTES % (AUTO) 13.4 % (2.0-12.0); NEUTROPHILS % (AUTO) 72.7 % (43.0-81.0); PLATELET COUNT (AUTO) 217 /CMM (150-450); RED BLOOD CELL COUNT(AUTO) 3.21 MIL/uL (4.0-5.2); WHITE BLOOD COUNT (AUTO) 2.7 K/uL (4.3-11.0)
[2019-09-22 16:04] LABS: CALCIUM, SERUM 7.9 mg/dL (8.5-10.1); CREATININE 0.8 mg/dL (0.6-1.3); POTASSIUM 3.3 mmol/L (3.5-5.1)
[2019-09-22] MEDS ORDERED: OSELTAMIVIR PHOSPHATE 75 MG CAPSULE PO ONE (16:30)
[2019-09-22] MEDS ORDERED: KETOROLAC TROMETHAMINE 15 MG/ML VIAL ONE (16:31)
[2019-09-22] MEDS ORDERED: OSELTAMIVIR PHOSPHATE 75 MG CAPSULE ONE (16:32)
--- NOTE | 2019-09-22 17:10 | NUR ---
IV removed. Catheter intact and site benign. Pressure and 4x4 applied to site. No bleeding noted. Patient discharged to home in stable condition. Written and verbal after care instructions given. Patient verbalizes understanding of instruction.
[2019-09-22 17:11] VITALS: BP 117/79
== END 2019-09-22 17:16 | disposition home or self-care (01) ==
LOC: ER 14:40
DX: J10.1 Influenza due to other identified influenza virus with other respiratory manifestations (principal); F17.200 Nicotine dependence, unspecified, uncomplicated; Z98.890 Other specified postprocedural states; Z60.2 Problems related to living alone; Z79.899 Other long term (current) drug therapy
CPT/HCPCS: 36415; 71045; 80048; 84703; 85025; 87804 ×2; 96374; 99284; J1885

== ENCOUNTER 2019-09-29 09:25 | Emergency (ER) | payer OTHER ==
[~2019-09-29] VITALS: Ht 152.4 cm; Wt 57.2 kg
[2019-09-29 09:29] VITALS: BP 103/63
== END 2019-09-29 09:50 | disposition home or self-care (01) ==
LOC: ER 09:28
DX: M32.9 Systemic lupus erythematosus, unspecified (principal); J32.9 Chronic sinusitis, unspecified; F17.200 Nicotine dependence, unspecified, uncomplicated; Z98.890 Other specified postprocedural states; Z60.2 Problems related to living alone; Z79.899 Other long term (current) drug therapy

== ENCOUNTER 2020-11-01 16:51 | Emergency (ER) | payer OTHER ==
[~2020-11-01] VITALS: Ht 152.4 cm; Wt 56.7 kg
--- NOTE | 2020-11-01 17:10 | NUR ---
DIZZINESS, NAUSEA AND VOMITING SINCE THIS MORNING. PATIENT A/OX4, BREATHING EVEN AND UNLABORED, NO SOB NOTED. C/O WEAKNESS, SINCE THIS AM.
--- NOTE | 2020-11-01 17:19 | NUR ---
dr. rivas at bedside for eval.
[2020-11-01] MEDS ORDERED: ONDANSETRON HCL/PF 4 MG/2 ML VIAL ONE (17:28)
[2020-11-01] MEDS ORDERED: IV NS 0.9% 1,000 ML BAG IV ONE (17:30)
[2020-11-01] MEDS ORDERED: ONDANSETRON HCL/PF 4 MG/2 ML VIAL IVP ONE (17:30)
--- NOTE | 2020-11-01 17:38 | NUR ---
PATIENT WENT TO RESTROOM.
[2020-11-01 17:41] LABS: BASOPHILS % (AUTO) 0.9 % (0.0-2.0); EOSINOPHILS % (AUTO) 0.1 % (0.0-6.0); HEMATOCRIT 37 % (33-45); HEMOGLOBIN 12.6 g/dL (11.5-14.8); LYMPHOCYTES # (AUTO) 1.4 /CMM (0.8-4.8); MEAN CORPUSCULAR HGB CONC 34 g/dl (31.0-36.0); MEAN CORPUSCULAR VOLUME 96 fL (82-100); MONOCYTES # (AUTO) 0.4 /CMM (0.1-1.30); MONOCYTES % (AUTO) 8.6 % (2.0-12.0); NEUTROPHILS # (AUTO) 2.6 /CMM (1.8-8.9); NEUTROPHILS % (AUTO) 58.4 % (43.0-81.0); PLATELET COUNT (AUTO) 259 /CMM (150-450); RED BLOOD CELL COUNT(AUTO) 3.86 MIL/uL (4.0-5.2); WHITE BLOOD COUNT (AUTO) 4.4 K/uL (4.3-11.0)
[2020-11-01 17:44] LABS: BILIRUBIN,URINE Negative (NEGATIVE); COLOR,URINE YELLOW (YELLOW); LEUKOCYTE ESTERASE ,URINE Negative (NEGATIVE); NITRITE, URINE Negative (NEGATIVE); PROTEIN,URINE Negative (NEGATIVE); UGLUCOSE Negative (NEGATIVE); UROBILINOGEN,URINE 0.2 EU/dL (0.2)
[2020-11-01] MEDS ORDERED: KETOROLAC TROMETHAMINE INJ 30 MG/ML VIAL IV ONE (18:00)
[2020-11-01] MEDS ORDERED: KETOROLAC TROMETHAMINE 15 MG/ML VIAL ONE (18:08)
[2020-11-01 18:25] LABS: ALBUMIN 3.6 g/dL (3.4-5.0); BILIRUBIN,DIRECT 0.1 mg/dL (0.0-0.2); BILIRUBIN,TOTAL 0.2 mg/dL (0.2-1.0); CALCIUM, SERUM 8.9 mg/dL (8.5-10.1); CREATININE 0.6 mg/dL (0.6-1.3); POTASSIUM 3.7 mmol/L (3.5-5.1); TOTAL PROTEIN, SERUM 6.9 g/dL (6.4-8.2)
[2020-11-01] MEDS ORDERED: IBUP-1955 PO (19:40)
[2020-11-01] MEDS ORDERED: ONDA4TAB5 PO (19:40)
[2020-11-01] MEDS ORDERED: MORPHINE SULFATE INJ 2 MG/ML DISP.SYRIN ONE (19:57)
[2020-11-01] MEDS ORDERED: METOCLOPRAMIDE HCL 10 MG/2 ML VIAL ONE (19:57)
[2020-11-01] MEDS ORDERED: MORPHINE SULFATE INJ 2 MG/ML DISP.SYRIN IV ONE (20:00)
[2020-11-01] MEDS ORDERED: METOCLOPRAMIDE HCL 10 MG/2 ML VIAL IV ONE (20:00)
--- NOTE | 2020-11-01 20:11 | NUR ---
IV removed. Catheter intact and site benign. Pressure and 4x4 applied to site. No bleeding noted.
--- NOTE | 2020-11-01 20:11 | NUR ---
Patient discharged to home in stable condition. Written and verbal after care instructions given. Patient verbalizes understanding of instruction and RX. Pt ambulated out of ED. VSS.
[2020-11-01 20:12] VITALS: BP 121/79
== END 2020-11-01 20:25 | disposition home or self-care (01) ==
LOC: ER 16:54
DX: K80.50 Calculus of bile duct without cholangitis or cholecystitis without obstruction (principal); R11.2 Nausea with vomiting, unspecified; F17.200 Nicotine dependence, unspecified, uncomplicated; Z98.890 Other specified postprocedural states; Z60.2 Problems related to living alone; Z79.899 Other long term (current) drug therapy
CPT/HCPCS: 36415; 76705; 80048; 80076; 81003; 83690; 84703; 85025; 96361; 96374; 96375; 99284; J1885; J2270; J2405; J2765; J7030

== ENCOUNTER 2021-02-28 14:54 | Emergency (ER) | payer OTHER ==
[~2021-02-28] VITALS: Ht 157.5 cm; Wt 60.3 kg
[~2021-02-28 14:54] MED LIST changes: +IBUP-1955 PO; +ONDA4TAB5 PO; +POLY17PO4 PO
[2021-02-28 15:14] VITALS: BP 114/88
[2021-02-28] MEDS ORDERED: IV NS 0.9% 1,000 ML BAG IV ONE (16:00)
[2021-02-28 16:17] LABS: BASOPHILS % (AUTO) 0.4 % (0.0-2.0); EOSINOPHILS % (AUTO) 0.1 % (0.0-6.0); HEMATOCRIT 34 % (33-45); HEMOGLOBIN 11.7 g/dL (11.5-14.8); LYMPHOCYTES % (AUTO) 34.1 % (20.0-44.0); MEAN CORPUSCULAR HGB CONC 34 g/dl (31.0-36.0); MEAN CORPUSCULAR VOLUME 93 fL (82-100); MONOCYTES # (AUTO) 0.3 K/uL (0.1-1.30); MONOCYTES % (AUTO) 9.8 % (2.0-12.0); NEUTROPHILS # (AUTO) 1.7 K/uL (1.8-8.9); NEUTROPHILS % (AUTO) 55.6 % (43.0-81.0); PLATELET COUNT (AUTO) 233 K/uL (150-450)
[2021-02-28 16:24] LABS: CREATININE 0.7 mg/dL (0.6-1.3); POTASSIUM 3.4 mmol/L (3.5-5.1)
[2021-02-28 17:12] LABS: BILIRUBIN,URINE Negative (NEGATIVE); COLOR,URINE YELLOW (YELLOW); LEUKOCYTE ESTERASE ,URINE Negative (NEGATIVE); NITRITE, URINE Negative (NEGATIVE); PROTEIN,URINE Negative (NEGATIVE); UGLUCOSE Negative (NEGATIVE); UROBILINOGEN,URINE 0.2 EU/dL (0.2)
[2021-02-28] MEDS ORDERED: ONDANSETRON HCL/PF 4 MG/2 ML VIAL ONE (17:17)
[2021-02-28] MEDS ORDERED: KETOROLAC TROMETHAMINE 15 MG/ML VIAL ONE (17:17)
[2021-02-28] MEDS ORDERED: KETOROLAC TROMETHAMINE INJ 30 MG/ML VIAL IV ONE (17:30)
[2021-02-28] MEDS ORDERED: ONDANSETRON HCL/PF 4 MG/2 ML VIAL IV ONE (17:30)
--- NOTE | 2021-02-28 18:43 | NUR ---
condition stable d/c home with instructions, no pain, nausea vomiting, after care reviewed understood left er alert, oriented x 4 ambulatory with steady gait.
== END 2021-02-28 18:45 | disposition home or self-care (01) ==
LOC: ER 14:54
DX: M32.9 Systemic lupus erythematosus, unspecified (principal); R53.1 Weakness; M25.50 Pain in unspecified joint; Z20.822 Contact with and (suspected) exposure to COVID-19; Z86.16 Personal history of COVID-19; F17.200 Nicotine dependence, unspecified, uncomplicated; Z79.899 Other long term (current) drug therapy
CPT/HCPCS: 36415; 80048; 81003; 84703; 85025; 85652; 86140; 87426; 96361; 96374; 96375; 99284; C9803; J1885; J2405; J7030

== ENCOUNTER 2021-08-25 17:15 | Emergency (ER) | payer OTHER ==
[~2021-08-25] VITALS: Ht 157.5 cm; Wt 60.3 kg
--- NOTE | 2021-08-25 17:30 | NUR ---
TO ER BED 13, C/O GENERALIZED WEAKNESS AND FACIAL RASH X1WK, AAOX3, DENIES SOB, BREATHING EVEN AND NON LABORED, CONNECTED TO MONITOR
[2021-08-25] MEDS ORDERED: IV NS 0.9% 1,000 ML BAG IV ONE (18:00)
[2021-08-25] MEDS ORDERED: methylPREDNISolone SOD SUCC 125 MG/2ML VIAL IV ONE (18:00)
[2021-08-25] MEDS ORDERED: methylPREDNISolone SOD SUCC 125 MG/2ML VIAL ONE (18:02)
--- NOTE | 2021-08-25 18:06 | NUR ---
IV LINE IS ESTABLISHED, BLOOD SPECIMEN COLLECTED AND SENT TO THE LAB. THE LINE IS SALINE LOCKED.
[2021-08-25 19:31] LABS: CARBON DIOXIDE 28 mmol/L (21-32); CHLORIDE 107 mmol/L (98-107); CREATININE 0.8 mg/dL (0.6-1.3); GLUCOSE 95 mg/dL (74-106); POTASSIUM 3.5 mmol/L (3.5-5.1); SODIUM SERUM 143 mmol/L (136-145); UREA NITROGEN, BLOOD 7 mg/dL (7-18)
[2021-08-25 19:40] LABS: ALANINE AMINOTRANSFERASE 18 U/L (12-78); ALKALINE PHOSPHATASE 43 U/L (46-116); ASPARTATE AMINOTRANSFERASE 14 U/L (15-37); BILIRUBIN,DIRECT 0.1 mg/dL (0.0-0.2); TOTAL PROTEIN, SERUM 6.2 g/dL (6.4-8.2)
[2021-08-25 19:50] LABS: BASOPHILS % (AUTO) 0.3 % (0.0-2.0); EOSINOPHILS % (AUTO) 0.2 % (0.0-6.0); HEMATOCRIT 31 % (33-45); HEMOGLOBIN 10.5 g/dL (11.5-14.8); LYMPHOCYTES # (AUTO) 0.6 K/uL (0.8-4.8); MEAN CORPUSCULAR HGB CONC 34 g/dl (31.0-36.0); MEAN CORPUSCULAR VOLUME 93 fL (82-100); MONOCYTES # (AUTO) 0.3 K/uL (0.1-1.30); MONOCYTES % (AUTO) 7.5 % (2.0-12.0); NEUTROPHILS # (AUTO) 2.6 K/uL (1.8-8.9); PLATELET COUNT (AUTO) 276 K/uL (150-450); RED BLOOD CELL COUNT(AUTO) 3.35 MIL/uL (4.0-5.2); WHITE BLOOD COUNT (AUTO) 3.5 K/uL (4.3-11.0)
[2021-08-25] MEDS ORDERED: PRED20TA PO (20:24)
[2021-08-25] MEDS ORDERED: HYDROCODONE/APAP 10/325MG TABLET ONE (20:28)
[2021-08-25] MEDS ORDERED: diphenhydrAMINE HCL 50 MG CAPSULE ONE (20:29)
[2021-08-25] MEDS ORDERED: HYDROCODONE/APAP 10/325MG TABLET PO ONE (20:30)
[2021-08-25] MEDS ORDERED: diphenhydrAMINE HCL 25 MG CAPSULE PO ONE (20:30)
--- NOTE | 2021-08-25 20:45 | NUR ---
Note jarett in ED - 08/26/21 at 0115 by TOM Patient discharged to home in stable condition. Written and verbal after care instructions given. Patient verbalizes understanding of instruction.IV removed. Catheter intact and site benign. Pressure and 4x4 applied to site. No bleeding noted. Pt ambulatory with a steady gait
[2021-08-26 01:08] LABS: BILIRUBIN,TOTAL < 0.2 mg/dL (0.2-1.0)
[2021-08-26 01:20] VITALS: BP 98/54
== END 2021-08-25 21:55 | disposition home or self-care (01) ==
LOC: ER 17:20
DX: M32.9 Systemic lupus erythematosus, unspecified (principal); F17.200 Nicotine dependence, unspecified, uncomplicated; Z98.890 Other specified postprocedural states; Z60.2 Problems related to living alone; Z79.899 Other long term (current) drug therapy
CPT/HCPCS: 36415; 80048; 80076; 85025; 96361; 96374; 99283; J2930; J7030; Q0163

== ENCOUNTER 2022-10-31 13:07 | Emergency (ER) | payer OTHER ==
[~2022-10-31] VITALS: Ht 175.3 cm; Wt 57.2 kg
[~2022-10-31 13:07] MED LIST changes: +PRED20TA PO
--- NOTE | 2022-10-31 13:10 | NUR ---
BIB FAMILY C/O HAVING BODY ACHE, NIGHT SWEATS, AND FEVER OF 101 SINCE SUNDAY, TOOK 1200MG OF TYLENOL AIR ANALYST. AMBULATORY, PLACED IN BED, AAOX4, BREATHING UNLABORED SATURATING AT 97%RA.
--- NOTE | 2022-10-31 14:15 | NUR ---
ELECTRONIC ASSEMBLY AT BEDSIDE
[2022-10-31] MEDS ORDERED: KETOROLAC TROMETHAMINE 15 MG/ML VIAL ONE ×2 (14:28→17:19)
[2022-10-31] MEDS ORDERED: IV NS 0.9% 1,000 ML IV ONE (14:30)
[2022-10-31] MEDS ORDERED: KETOROLAC TROMETHAMINE INJ 30 MG/ML VIAL IV ONE ×2 (14:30→17:30)
[2022-10-31 14:43] LABS: BASOPHILS % (AUTO) 0.5 % (0.0-2.0); EOSINOPHILS % (AUTO) 0.4 % (0.0-6.0); HEMATOCRIT 37 % (33-45); HEMOGLOBIN 12.3 g/dL (11.5-14.8); LYMPHOCYTES # (AUTO) 0.9 K/uL (0.8-4.8); LYMPHOCYTES % (AUTO) 36.9 % (20.0-44.0); MEAN CORPUSCULAR HGB CONC 34 g/dl (31.0-36.0); MEAN CORPUSCULAR VOLUME 89 fL (82-100); MONOCYTES # (AUTO) 0.3 K/uL (0.1-1.30); NEUTROPHILS # (AUTO) 1.1 K/uL (1.8-8.9); NEUTROPHILS % (AUTO) 48.2 % (43.0-81.0); PLATELET COUNT (AUTO) 238 K/uL (150-450); RED BLOOD CELL COUNT(AUTO) 4.13 MIL/uL (4.0-5.2); WHITE BLOOD COUNT (AUTO) 2.3 K/uL (4.3-11.0)
--- NOTE | 2022-10-31 14:44 | NUR ---
SWAB FOR COVID19 AND RAPID INFLUEMZA SENT TO LAB
[2022-10-31 14:45] LABS: CALCIUM, SERUM 8.5 mg/dL (8.5-10.1); CREATININE 0.7 mg/dL (0.6-1.3); MAGNESIUM 2.4 mg/dL (1.8-2.4); POTASSIUM 3.8 mmol/L (3.5-5.1)
--- NOTE | 2022-10-31 15:24 | NUR ---
URINE SAMPLE SENT TO LAB
[2022-10-31 16:13] LABS: BILIRUBIN,URINE NEGATIVE (NEGATIVE); COLOR,URINE YELLOW (YELLOW); LEUKOCYTE ESTERASE ,URINE NEGATIVE (NEGATIVE); NITRITE, URINE NEGATIVE (NEGATIVE); PROTEIN,URINE NEGATIVE (NEGATIVE); UGLUCOSE NEGATIVE (NEGATIVE); UROBILINOGEN,URINE 0.2 EU/dL (0.2)
[2022-10-31] MEDS ORDERED: IBUP-1955 PO (16:58)
--- NOTE | 2022-10-31 17:30 | NUR ---
IV removed. Catheter intact and site benign. Pressure and 4x4 applied to site. No bleeding noted.Patient discharged to home in stable condition. Written and verbal after care instructions given. Patient verbalizes understanding of instruction.
[2022-10-31 18:08] VITALS: BP 110/60
[2022-10-31 18:23] LABS: LYMPHOCYTES % (MANUAL) 38 % (16-48); MONOCYTES % (MANUAL) 11 % (0-11.0); NEUTROPHILS % (MANUAL) 51 (42-76)
== END 2022-10-31 17:30 | disposition home or self-care (01) ==
LOC: ER 13:09
DX: U07.1 COVID-19 (principal); M79.10 Myalgia, unspecified site; R53.1 Weakness; F17.200 Nicotine dependence, unspecified, uncomplicated; Z98.890 Other specified postprocedural states; Z79.899 Other long term (current) drug therapy; Z20.822 Contact with and (suspected) exposure to COVID-19; Z60.2 Problems related to living alone
CPT/HCPCS: 99284; 96374; 96361; 87426; 87804 ×2; 96376; 85025; 80048; 83735; 84703; 81003; 36415; 85007; J7030; J1885 ×2; C9803